=== PATIENT | male | born 1995 | race Caucasian/White ===

== ENCOUNTER 2016-11-29 01:20 | Emergency (ER) | payer OTHER ==
[2016-11-29 01:30] VITALS: BP 125/75
[2016-11-29] MEDS ORDERED: Tetan/Diph/Pertus SYR(Tdap)* 0.5 ML SYR(BOOSTRIX) use SYR IM ONE (02:16)
[2016-11-29] MEDS ORDERED: Lidocaine 1% INJ* 10 MG/ML 30 ML SDV ONE (02:27)
--- NOTE | 2016-11-29 03:31 | ED ---
Upper Extremity Pain - HPI Summary HPI Summary: 21 y/o male with no PMH, no medications presents after cutting L hand with knife. knife used to cut limes. + etoh use, no LOC. denies loss of sensation , movement. + pain with movemetn, + bleeding right handed, works as solar electric installer - History of Current Complaint Chief Complaint: EDLacSutureRecheck Stated Complaint: LT HAND LAC Time Seen by Provider: 11/29/16 02:14 Hx Obtained From: Patient, Family/[employer]ician - father Onset/Duration: Started Minutes Ago Timing: Constant Severity Initially: Moderate Severity Currently: Moderate Pain Location: Hand - left Character: Sharp Aggravating Factor(s): Movement Alleviating Factor(s): Rest Associated Signs & Symptoms: Positive: Redness, Bruising, Other - laceration - Allergies/Home Medications Allergies/Adverse Reactions: Allergies Allergy/AdvReac Type Severity Reaction Status Date / Time No Known Allergies Allergy Verified 11/29/16 01:30 PMH/Surg Hx/FS Hx/Imm Hx Previously Healthy: Yes - Immunization History Date of Tetanus Vaccine: unknown Infectious Disease History: No Infectious Disease History: Denies: Traveled Outside the [place] in Last 30 Days - Social History Alcohol Use: Occasionally Substance Use Type: Reports: Marijuana Smoking Status (MU): Never Smoked Tobacco Review of Systems Positive: Myalgia Positive: Other - bleeding laceration Positive: Anxious All Other Systems Reviewed And Are Negative: Yes Physical Exam Triage Information Reviewed: Yes Vital Signs On Initial Exam: Initial Vitals Temp Pulse Resp BP Pulse Ox 98.0 F 86 16 125/75 95 11/29/16 01:27 11/29/16 01:27 11/29/16 01:27 11/29/16 01:27 11/29/16 01:27 Vital Signs Reviewed: Yes Appearance: Positive: Well-Appearing, No Pain Distress - none with hand at rest , Well-Nourished, Pain Distress - mild to moderate iwth movement Skin: Positive: Warm, Skin Color Reflects Adequate Perfusion, Other - cap refill L hand <2 seconds Eyes: Positive: EOMI, Conjunctiva Inflammed - mild Musculoskeletal: Positive: Other - 3.5 cm x 1cm laceration over L pointer finger at MCP extending to base of 3rd MCP, full thickness, + bleeding, full sensaiton of 2, 3rd fingers, full ROM of all fingers, strength 5/5 in all fingers, pictures editor strength L=R. rad, ulnar pulses 2+ b/l. Neurological: Positive: Normal, Sensory/Motor Intact, Alert, Oriented to Person Place, Time Psychiatric: Positive: Normal, Anxious - when suturin g AVPU Assessment: Alert Procedures - Laceration/Wound Repair 1 Location: upper extremity Description: Linear Anesthesia: Local, 1.0%, Lido Length, Depth and Shape: 3.5 x 1cm Betadine Prep?: No - chlorhexedene Irrigated w/ Saline (ccs): 1,000 Laceration/Wound Explored: clean Closure: Single Layer Debridement: minimal Suture Type: Nylon Number of Sutures: 12 Layer Closure?: No Sterile Dressing Applied?: Yes Diagnostics - Vital Signs Vital Signs Temp Pulse Resp BP Pulse Ox 11/29/16 01:27 98.0 F 86 16 125/75 95 - Laboratory Lab Statement: Any lab studies that have been ordered have been reviewed, and results considered in the medical decision making process. Course/Dx - Course Course Of Treatment: sutures to e removed in 7-10 days, tolerated procedure well , follow up with PCP take dressing off in 24-48 hours, return for cool fingers, decreased ROM. fever, chills - Diagnoses Differential Diagnosis/HQI/PQRI: Positive: Bursitis, Fracture (Open), Fracture ( Closed), Laceration Provider Diagnoses: Laceration of left hand Discharge - Discharge Plan Condition: Stable Disposition: HOME Prescriptions: Hydrocodone-Acetaminophen [[place] 5-325 mg] 1 tab PO Q6HR #5 tab MDD 4 Patient Education Materials: Care For Your Stitches (ED), Laceration (ED) Forms: *School Release Referrals: No Primary Care Phys,NOPCP [Primary Care Provider] - Additional Instructions: - Keep dressing on until 10/9 AM/ afternoon, remove dressing- if increased redness, drainage, pain, go to [facility], physician - Tylenol/ motrin as needed for mild to moderate pain - [place] as needed for severe pain - Elevate hand, ice to reduce pain, swelling - May take dressing off if too tight - Sutures to be removed within 7-10 days
== END 2016-11-29 03:47 | disposition home or self-care (01) ==
LOC: ED 01:20
DX: S61.412A Laceration without foreign body of left hand, initial encounter (principal); W26.0XXA Contact with knife, initial encounter; Y93.9 Activity, unspecified; Y92.9 Unspecified place or not applicable
CPT/HCPCS: 12002; 90471; 90715; 96372; 99281; J2001